=== PATIENT | female | born 1975 | race Hispanic/Latino ===

== ENCOUNTER 2023-07-24 07:55 | Day surgery (SDC) | payer BC ==
[2023-07-22 13:00] VITALS: BP 126/58; PULSE 56; RESP 17
[2023-07-22 13:07] LABS: BASOPHILS # (AUTO) 0.07 K/uL (0.00-0.20); BASOPHILS % (AUTO) 1.1 % (0.0-5.0); EOSINOPHILS # (AUTO) 0.14 K/uL (0.00-0.70); EOSINOPHILS % (AUTO) 2.2 % (0.0-8.0); HEMATOCRIT 34.2 % (36-48); IMMATURE GRANULOCYTE ABSOLUTE 0.02 K/uL (0-1); LYMPHOCYTES # (AUTO) 1.8 K/uL (1.0-4.8); LYMPHOCYTES % (AUTO) 28.9 % (21.0-51.0); MEAN CORPUSCULAR HEMOGLOBIN 27.1 pg (27.0-33.0); MEAN CORPUSCULAR HGB CONC 31.6 g/dL (32.0-36.0); MEAN CORPUSCULAR VOLUME 85.9 fL (79-99); MONOCYTES # (AUTO) 0.3 K/uL (0.1-1.0); MONOCYTES % (AUTO) 4.4 % (3.0-13.0); NEUTROPHILS % (AUTO) 63.1 % (40.0-77.0); PLATELET COUNT (AUTO) 377 K/uL (130-400); RED BLOOD CELL COUNT(AUTO) 3.98 MIL/uL (4.00-5.50); RED CELL DISTRIBUTION WIDTH 13.5 % (11.0-15.5); WHITE BLOOD COUNT (AUTO) 6.3 K/uL (4.8-10.8)
[2023-07-24] VITALS (16 sets, daily range): BP systolic 93–121; BP diastolic 55–76; PULSE 49–66; RESP 9–18
[~2023-07-24] VITALS: Ht 154.9 cm; Wt 80.6 kg
[~2023-07-24 07:55] MED LIST: CETI-89 PO
[2023-07-24] MEDS: CEFAZOLIN SODIUM 2 GM VIAL ONE (08:37)
[2023-07-24] MEDS: LACTATED RINGERS 1000ML 1,000 ML IV ONE (08:37)
[2023-07-24] MEDS ORDERED: MIDAZOLAM HCL 1 MG/ML 2ML VIAL ONE (10:44)
[2023-07-24] MEDS ORDERED: ONDANSETRON 4MG INJ ONE (10:44)
[2023-07-24] MEDS ORDERED: ROCURONIUM BROMIDE 10MG/1ML 5ML VL ONE (10:44)
[2023-07-24] MEDS ORDERED: PROPOFOL 10 MG/ML 20ML VIAL IV ONE (10:44)
[2023-07-24] MEDS ORDERED: FENTANYL CITRATE PF 50 MCG/1 ML 2ML VIAL ONE ×2 (10:45→12:00)
[2023-07-24] MEDS: CEFAZOLIN SODIUM 2 GM VIAL IVPB ONE (11:26)
[2023-07-24] MEDS ORDERED: BUPIVACAINE/PF 0.25% 30ML VIAL IJ ONE (11:35)
[2023-07-24] MEDS ORDERED: DEXAMETHASONE SOD PHOSPHATE 4 MG/ML 1ML VIAL ONE (11:40)
[2023-07-24] MEDS ORDERED: DEXAMETHASONE SOD PHOSPHATE 10MG/ML 1ML VIAL ONE (11:41)
[2023-07-24] MEDS ORDERED: GLYCOPYRROLATE 0.2 MG/ML 5 ML VIAL ONE (12:02)
[2023-07-24] MEDS ORDERED: NEOSTIGMINE METHYLSULFATE 1MG/ML IV ONE (12:02)
[2023-07-24] MEDS ORDERED: KETOROLAC 30MG VIAL (30MG/ML) ONE (12:13)
[2023-07-24] MEDS: ONDANSETRON 4MG INJ ONE (12:44)
[2023-07-24] MEDS: MEPERIDINE-PF 25 MG/ML SYG ONE ×2 (12:45)
[2023-07-24] MEDS: ACETAMINOPHEN 1,000 MG/100 ML VIAL IV ONE (12:45)
== END 2023-07-24 13:55 | disposition home or self-care (01) ==
LOC: DAH 07:55 → EDSTATUS 11:00 → DAH 13:55
PROVIDERS: ATTEND Obstetrics & Gynecology
DX: N92.0 Excessive and frequent menstruation with regular cycle (principal); Z30.2 Encounter for sterilization; N94.5 Secondary dysmenorrhea; N81.2 Incomplete uterovaginal prolapse; D25.9 Leiomyoma of uterus, unspecified; J45.909 Unspecified asthma, uncomplicated; Z79.899 Other long term (current) drug therapy; Z98.891 History of uterine scar from previous surgery
CPT/HCPCS: 84703; 85025; 86850; 86900; 86901; 36415; 58555; A6260; A4663; A4351; A4606; A4355; J7120; J3010 ×2; J1100; J0665 ×2; J3490 ×2; J2250; J2704; J2405 ×2; J1885; J2710; J2175 ×2; J0690 ×2; C1769 ×2; A4930; A4215; A4223; A4222; A4221; A4335; J7030; A4600

== ENCOUNTER 2023-08-04 10:00 | Inpatient (IN) | payer BC ==
[~2023-08-04] VITALS: Ht 157.5 cm; Wt 80.3 kg
[2023-08-04 14:49] LABS: BASOPHILS # (AUTO) 0.05 K/uL (0.00-0.20); BASOPHILS % (AUTO) 0.8 % (0.0-5.0); EOSINOPHILS # (AUTO) 0.15 K/uL (0.00-0.70); EOSINOPHILS % (AUTO) 2.4 % (0.0-8.0); HEMATOCRIT 33.6 % (36-48); IMMATURE GRANULOCYTE ABSOLUTE 0.01 K/uL (0-1); LYMPHOCYTES # (AUTO) 1.7 K/uL (1.0-4.8); LYMPHOCYTES % (AUTO) 27.2 % (21.0-51.0); MEAN CORPUSCULAR HGB CONC 31.5 g/dL (32.0-36.0); MEAN CORPUSCULAR VOLUME 85.5 fL (79-99); MONOCYTES # (AUTO) 0.4 K/uL (0.1-1.0); NEUTROPHILS # (AUTO) 4.1 K/uL (1.8-7.7); NEUTROPHILS % (AUTO) 63.4 % (40.0-77.0); PLATELET COUNT (AUTO) 392 K/uL (130-400); RED BLOOD CELL COUNT(AUTO) 3.93 MIL/uL (4.00-5.50); RED CELL DISTRIBUTION WIDTH 13.6 % (11.0-15.5); WHITE BLOOD COUNT (AUTO) 6.4 K/uL (4.8-10.8)
[2023-08-04 15:08] VITALS: BP 96/72; PULSE 73; RESP 16
[2023-08-14] VITALS (21 sets, daily range): BP systolic 85–108; BP diastolic 41–65; PULSE 54–82; RESP 13–20
[2023-08-14] MEDS ORDERED: PHENYLEPHRINE HCL 10 MG/ML 1ML VIAL IV ONE ×2 (07:53→10:00)
[2023-08-14 08:19] LABS: CREATININE 0.7 mg/dL (0.5-1.0); POTASSIUM 4.6 mmol/L (3.5-5.1)
[2023-08-14] MEDS ORDERED: ONDANSETRON 4MG INJ ONE (08:51)
[2023-08-14] MEDS ORDERED: LIDOCAINE PF 100MG/5ML (2%) SYRINGE 5ML ONE (08:51)
[2023-08-14] MEDS ORDERED: PROPOFOL 10 MG/ML 20ML VIAL IV ONE ×2 (08:51→11:11)
[2023-08-14] MEDS ORDERED: ROCURONIUM BROMIDE 10MG/1ML 5ML VL ONE (08:52)
[2023-08-14] MEDS ORDERED: MIDAZOLAM HCL 1 MG/ML 2ML VIAL ONE (08:57)
[2023-08-14] MEDS ORDERED: FENTANYL CITRATE PF 50 MCG/1 ML 2ML VIAL ONE (08:57)
[2023-08-14] MEDS ORDERED: MORPHINE PF 100MG/10ML AMP IV ONE (08:59)
[2023-08-14] MEDS: LACTATED RINGERS 1000ML 1,000 ML IV ONE (09:23)
[2023-08-14] MEDS: CEFAZOLIN SODIUM 2 GM VIAL ONE (09:23)
[2023-08-14] MEDS ORDERED: EPHEDRINE SULFATE 50 MG/ML AMPULE ONE (10:45)
[2023-08-14] MEDS ORDERED: GLYCOPYRROLATE 0.2 MG/ML 5 ML VIAL ONE (11:05)
[2023-08-14] MEDS ORDERED: NEOSTIGMINE METHYLSULFATE 1MG/ML IV ONE (11:05)
[2023-08-14] MEDS ORDERED: KETOROLAC 30MG VIAL (30MG/ML) ONE (11:17)
[2023-08-14] MEDS ORDERED: PROMETHAZINE HCL 25 MG/ML 1ML AMPULE IM PRN ×2 (11:30)
[2023-08-14] MEDS ORDERED: BISACODYL 10 MG SUPP.RECT RC PRN (11:30)
[2023-08-14] MEDS ORDERED: MEPERIDINE-PF 75 MG/ML SYG IM PRN (11:30)
[2023-08-14] MEDS ORDERED: IBUPROFEN 600 MG TABLET PO PRN (11:30)
[2023-08-14] MEDS: ACETAMINOPHEN 1,000 MG/100 ML VIAL IV ONE (12:02)
[2023-08-14] MEDS: ACETAMINOPHEN WITH CODEINE 1 TAB TAB PO PRN (16:19)
[2023-08-14] MEDS: CALDOLOR 800MG+NS 250ML 250 ML IV SCH (18:47)
[2023-08-14] MEDS: LACTATED RINGERS 1000ML 1,000 ML IV SCH (18:52)
[2023-08-15 03:16] VITALS: BP 99/54; PULSE 66; RESP 20
[2023-08-15 07:02] LABS: HEMATOCRIT 26.4 % (36-48); MEAN CORPUSCULAR HGB CONC 31.1 g/dL (32.0-36.0); MEAN CORPUSCULAR VOLUME 83.8 fL (79-99); RED BLOOD CELL COUNT(AUTO) 3.15 MIL/uL (4.00-5.50); RED CELL DISTRIBUTION WIDTH 14.3 % (11.0-15.5); WHITE BLOOD COUNT (AUTO) 7.1 K/uL (4.8-10.8)
[2023-08-15 07:45] VITALS: BP 105/63; PULSE 75; RESP 20
[2023-08-15] MEDS: SIMETHICONE 80 MG TAB.CHEW PO PRN (08:39)
[2023-08-15] MEDS: DOCUSATE SODIUM 100 MG CAP PO PRN (08:39)
[2023-08-15] MEDS: IBUPROFEN 800 MG TAB PO PRN (10:46)
[2023-08-15] MEDS: IBUPROFEN 800 MG TAB ONE (10:46)
[2023-08-15 11:15] VITALS: BP 99/63; PULSE 77; RESP 20
[2023-08-15] MEDS ORDERED: IBUPROFEN 600 MG TABLET PO PRN (11:30)
[2023-08-15] MEDS: ACETAMINOPHEN WITH CODEINE 1 TAB TAB PO PRN (14:47)
[2023-08-15 15:20] VITALS: BP 106/62; PULSE 70; RESP 20
[2023-08-15 19:40] VITALS: BP 120/67; PULSE 80; RESP 20
[2023-08-15] MEDS: HYDROCODONE/ACETAMINOPHEN 5/325 MG TAB PO PRN (21:16)
[2023-08-15 23:19] VITALS: BP 104/66; PULSE 77; RESP 18
[2023-08-16 03:20] VITALS: BP 108/54; PULSE 76; RESP 18
[2023-08-16 07:07] LABS: HEMATOCRIT 26.8 % (36-48); MEAN CORPUSCULAR HEMOGLOBIN 26.5 pg (27.0-33.0); MEAN CORPUSCULAR HGB CONC 30.6 g/dL (32.0-36.0); MEAN CORPUSCULAR VOLUME 86.5 fL (79-99); PLATELET COUNT (AUTO) 329 K/uL (130-400); RED CELL DISTRIBUTION WIDTH 14.5 % (11.0-15.5); WHITE BLOOD COUNT (AUTO) 9.8 K/uL (4.8-10.8)
[2023-08-16 07:45] VITALS: BP 101/66; PULSE 81; RESP 18
[2023-08-16] MEDS ORDERED: IBUP-2077 PO (10:09)
[2023-08-16] MEDS ORDERED: DOCU-116 PO (10:09)
[2023-08-16] MEDS ORDERED: ACET-2079 PO (10:10)
== END 2023-08-16 11:20 | disposition home or self-care (01) | DRG 743 ==
LOC: DAH 10:00 → EDSTATUS 16:00 → DAHIP 08-14 07:50 → WSH 08-14 12:15
PROVIDERS: ADMIT Obstetrics & Gynecology; ATTEND Obstetrics & Gynecology
PROC: 0UT70ZZ Resection of Bilateral Fallopian Tubes, Open Approach (ICD-10-PCS; principal; 2023-08-14 09:07)
PROC: 0UT20ZZ Resection of Bilateral Ovaries, Open Approach (ICD-10-PCS; 2023-08-14 09:07)
DX: N92.0 Excessive and frequent menstruation with regular cycle (principal); D25.9 Leiomyoma of uterus, unspecified; K66.0 Peritoneal adhesions (postprocedural) (postinfection); N73.6 Female pelvic peritoneal adhesions (postinfective); N83.291 Other ovarian cyst, right side; N94.5 Secondary dysmenorrhea
CPT/HCPCS: 36415; 80048; 81025; 84703; 85025; 85027; 86850; 86900; 86901; A4344; G0378; J1741; J1885; J2001; J2250; J2274; J2371; J2405; J2704; J2710; J3010; J3490; J7030; J7120; A4215; A4221; A4222; A4223; A4510; A4600; A4663; A6260; G0168; J0690

== ENCOUNTER 2023-10-17 13:16 | Emergency (ER) | payer BC ==
[~2023-10-17] VITALS: Ht 154.9 cm; Wt 74.4 kg
[~2023-10-17 13:16] MED LIST changes: +ACET-2079 PO; +DOCU-116 PO; +IBUP-2077 PO
[2023-10-17 13:41] LABS: BASOPHILS # (AUTO) 0.02 K/uL (0.00-0.20); BASOPHILS % (AUTO) 0.3 % (0.0-5.0); EOSINOPHILS # (AUTO) 0.04 K/uL (0.00-0.70); EOSINOPHILS % (AUTO) 0.6 % (0.0-8.0); HEMATOCRIT 35.5 % (36-48); IMMATURE GRANULOCYTE ABSOLUTE 0.01 K/uL (0-1); LYMPHOCYTES # (AUTO) 1.2 K/uL (1.0-4.8); LYMPHOCYTES % (AUTO) 19.2 % (21.0-51.0); MEAN CORPUSCULAR HEMOGLOBIN 23.3 pg (27.0-33.0); MEAN CORPUSCULAR HGB CONC 31.5 g/dL (32.0-36.0); MEAN CORPUSCULAR VOLUME 73.8 fL (79-99); MONOCYTES # (AUTO) 0.2 K/uL (0.1-1.0); MONOCYTES % (AUTO) 3.3 % (3.0-13.0); NEUTROPHILS # (AUTO) 4.9 K/uL (1.8-7.7); NEUTROPHILS % (AUTO) 76.4 % (40.0-77.0); PLATELET COUNT (AUTO) 473 K/uL (130-400); RED BLOOD CELL COUNT(AUTO) 4.81 MIL/uL (4.00-5.50); RED CELL DISTRIBUTION WIDTH 17.6 % (11.0-15.5); WHITE BLOOD COUNT (AUTO) 6.4 K/uL (4.8-10.8)
[2023-10-17 14:02] LABS: ALBUMIN 3.7 g/dL (3.5-5.0); BILIRUBIN,TOTAL 0.3 mg/dL (0.2-1.0); CREATININE 0.8 mg/dL (0.5-1.0); TOTAL PROTEIN, SERUM 8.4 g/dL (6.0-8.3)
[2023-10-17 14:41] LABS: APPEARANCE,URINE CLEAR (CLEAR); BILIRUBIN,URINE NEGATIVE (NEGATIVE); COLOR,URINE LIGHT-YELLOW (YELLOW); GLUCOSE, URINE (UA) NEGATIVE (NEGATIVE); KETONES,URINE 40 mg/dL (NEGATIVE); LEUKOCYTE ESTERASE ,URINE NEGATIVE Leu/uL (NEGATIVE); NITRATE,URINE NEGATIVE (NEGATIVE); OCCULT BLOOD,URINE NEGATIVE (NEGATIVE); PROTEIN,URINE 10 mg/dL (NEGATIVE); UROBILINOGEN,URINE 0.2 mg/dL (0.2-1.0)
[2023-10-17 14:45] LABS: ADD UA MICROSCOPIC YES
[2023-10-17 14:47] LABS: BACTERIA,URINE RARE /HPF (None Seen); MUCUS,URINE RARE LPF (None Seen); RBC,URINE 0-1 /HPF (0-1); SQUAMOUS EPITHELIAL CELL,UR RARE /HPF (0-2)
[2023-10-17] MEDS: KETOROLAC 15MG/ML VIAL (15MG/ML) IV ONE (16:16)
[2023-10-17 16:22] VITALS: BP 124/58; PULSE 72; RESP 16; O2SAT 99
== END 2023-10-17 17:12 | disposition home or self-care (01) ==
LOC: EDH 13:16
DX: F41.0 Panic disorder [episodic paroxysmal anxiety] (principal); R55 Syncope and collapse; R20.0 Anesthesia of skin; Z79.899 Other long term (current) drug therapy; Z90.710 Acquired absence of both cervix and uterus; Z98.890 Other specified postprocedural states
CPT/HCPCS: 99285; 70450; 96374; 71045; 84484; 80053; 84703; 85025; 82948; 81001; 36415; 72125; 93005; J1885